=== PATIENT | male | born 1950 | race Caucasian/White ===

== ENCOUNTER 2017-01-04 10:54 | Emergency (ER) | payer BC ==
[~2017-01-04] VITALS: Ht 172.7 cm; Wt 87.5 kg
[2017-01-04 10:55] VITALS: BP 112/65
[2017-01-04] MEDS ORDERED: ALFU10TA2 PO (11:15)
[2017-01-04] MEDS ORDERED: CIPR5SUS PO (11:15)
[2017-01-04] MEDS ORDERED: FINA5TAB2 PO (11:15)
--- NOTE | 2017-01-04 13:59 | REP ---
KUB: Single view. History: History of bladder stones. Findings: Bowel gas pattern is unremarkable. No mass, organomegaly or pathologic calcifications appreciated. Impression: Unremarkable KUB. No urinary tract calculus seen. Signed by Blair Hall MD 01/04/2017 04:41 P
== END 2017-01-04 14:11 | disposition home or self-care (01) ==
LOC: M ED 11:50
DX: R30.0 Dysuria (principal); I10 Essential (primary) hypertension; Z79.899 Other long term (current) drug therapy

== ENCOUNTER → 2017-04-30 | Outpatient (REF) | payer BC ==
[~2017-04-30] MED LIST: ALFU10TA2 PO; CIPR5SUS PO; FINA5TAB2 PO
== END ==
LOC: M SFHCPLAZ 13:22
PROVIDERS: ATTEND Nurse Practitioner Women's Health
DX: N40.1 Benign prostatic hyperplasia with lower urinary tract symptoms (principal)

== ENCOUNTER → 2017-05-12 | Outpatient (REF) | payer BC | LOC: M SMT 12:47 | PROVIDERS: ATTEND Urology | DX: N39.0 Urinary tract infection, site not specified (principal) ==

== ENCOUNTER → 2018-02-15 | Outpatient (REF) | payer OTHER, BC ==
[2018-02-15 13:23] LABS: APPEARANCE, URINE CLEAR (CLEAR); BACTERIA, URINE AUTO NEGATIVE (NEGATIVE); BILIRUBIN, URINE AUTO NEGATIVE (NEGATIVE); BLOOD, URINE BLOOD NEGATIVE (NEGATIVE); COLOR, URINE COLORLESS (YELLOW); GLUCOSE, URINE (UA) AUTO NEGATIVE (NEGATIVE); KETONE, URINE AUTO NEGATIVE (NEGATIVE); LEUKOCYTE ESTERASE, URINE AUTO NEGATIVE (NEGATIVE); NITRITE, URINE AUTO NEGATIVE (NEGATIVE); PROTEIN, URINE AUTO NEGATIVE (NEGATIVE); RBC, URINE AUTO 0 /HPF (0-3); SPECIFIC GRAVITY URINE AUTO 1.002 (1.002-1.035); SQUAMOUS EPITHELIAL CELL UR AU 0 /HPF (0-6); UROBILINOGEN, URINE AUTO 0.2 mg/dL (0.0-2.0); WBC, URINE AUTO 0 /HPF (0-3)
== END ==
LOC: M SMT 13:04
DX: N40.1 Benign prostatic hyperplasia with lower urinary tract symptoms (principal)
CPT/HCPCS: 81001

== ENCOUNTER 2018-03-06 12:15 | Emergency (ER) | payer OTHER ==
[2018-03-06 12:52] LABS: BASO % 0.3 % (0.0-1.0); EOS # 0.1 10^3/uL (0.0-0.50); HEMATOCRIT 40.7 % (42.0-52.0); HEMOGLOBIN 14.3 g/dl (13.5-17.5); IMMATURE GRANULOCYTE % 0.3 % (0-3.0); LYMPH # 1.5 10^3/uL (1.5-4.5); LYMPH % 25.5 % (24.0-44.0); MEAN CORPUSCULAR HEMOGLOBIN 32.1 pg (27.0-33.0); MEAN CORPUSCULAR HGB CONC 35.1 g/dl (32.0-36.5); MEAN CORPUSCULAR VOLUME 91.3 fl (80.0-96.0); MONO # 0.6 10^3/uL (0.0-0.8); MONO % 10.1 % (0.0-5.0); NEUTROPHILS # 3.7 10^3/uL (1.8-7.7); NEUTROPHILS % 62.8 % (36.0-66.0); PLATELET COUNT, AUTOMATED 207 10^3/uL (150-450); RED BLOOD COUNT 4.46 10^6/uL (4.30-6.10); RED CELL DISTRIBUTION WIDTH 12.5 % (11.5-14.5); WHITE BLOOD COUNT 5.8 10^3/uL (4.0-10.0)
[2018-03-06 12:55] LABS: KETONE, URINE AUTO RFX NEGATIVE (NEGATIVE); LEUKOCYTE ESTERASE UR AUTO RFX NEGATIVE (NEGATIVE); MUCUS, URINE RFX SMALL (NEGATIVE); NITRITE, URINE AUTO RFX NEGATIVE (NEGATIVE); RBC, URINE AUTO RFX 1 /HPF (0-3); SQUAM EPITHELIAL CELL UR AURFX 0 /HPF (0-6); WBC, URINE AUTO RFX 0 /HPF (0-3)
[2018-03-06 13:17] LABS: ALBUMIN 3.8 GM/DL (3.2-5.2); ALBUMIN/GLOBULIN RATIO 1.12 (1.00-1.93); ALKALINE PHOSPHATASE 68 U/L (45-117); ALT/SGPT 27 U/L (12-78); ANION GAP 4 MEQ/L (8-16); AST/SGOT 18 U/L (7-37); BILIRUBIN,TOTAL 0.4 MG/DL (0.2-1.0); BLOOD UREA NITROGEN 24 MG/DL (7-18); CALCIUM LEVEL 8.6 MG/DL (8.8-10.2); CARBON DIOXIDE LEVEL 31 MEQ/L (21-32); CHLORIDE LEVEL 108 MEQ/L (98-107); CREATININE FOR GFR 0.98 MG/DL (0.70-1.30); GLOMERULAR FILTRATION RATE > 60.0 (>49); GLUCOSE, FASTING 107 MG/DL (70-100); POTASSIUM SERUM 4.4 MEQ/L (3.5-5.1); SODIUM LEVEL 143 MEQ/L (136-145); TOTAL PROTEIN 7.2 GM/DL (6.4-8.2)
[2018-03-06] MEDS: NS 1,000 ML IV (13:23)
[2018-03-06] MEDS: METOCLOPRAMIDE INJ 10MG/2ML VIAL (J2765) IV (13:23)
== END 2018-03-06 15:23 | disposition home or self-care (01) ==
LOC: M ED 12:15
DX: R10.30 Lower abdominal pain, unspecified (principal); R33.9 Retention of urine, unspecified; N42.9 Disorder of prostate, unspecified; Z87.442 Personal history of urinary calculi; Z87.891 Personal history of nicotine dependence; Z79.899 Other long term (current) drug therapy
CPT/HCPCS: J2765

== ENCOUNTER → 2018-06-21 | Outpatient (CLI) | payer MEDICARE, OTHER | LOC: M ONCR 08:43 | DX: C20 Malignant neoplasm of rectum (principal) | CPT/HCPCS: G0463 ==

== ENCOUNTER 2018-06-29 13:23 | Outpatient (RCR) | payer MEDICARE ==
[2018-06-29 13:53] LABS: HEMOGLOBIN 13.9 g/dl (12.0-18.0); LYMPH # ONCOLOGY 1.8 10^3uL (0.6-4.1); LYMPH % 29.2 % (10.0-58.5); MEAN CORPUSCULAR HGB CONC 33.9 g/dl (31.0-36.0); MEAN CORPUSCULAR VOLUME 97.5 fl (80.0-97.0); MEAN PLATELET VOLUME 8.6 fl (0.0-50.0); MID RANGE CELLS # 0.5 10^3/uL (0-1.8); NEUTROPHILS # 3.8 10^3/uL (2.0-7.8); NEUTROPHILS % 61.8 % (37.0-92.0); PLATELET COUNT, AUTOMATED 237 10^3/uL (140-440); RED BLOOD COUNT 4.21 10^6/uL (4.2-6.3); RED CELL DISTRIBUTION WIDTH 12.9 % (11.5-14.5); WHITE BLOOD COUNT 6.1 10^3/uL (4.1-10.9)
== END 2018-07-01 ==
LOC: M ONCR 13:23
DX: C20 Malignant neoplasm of rectum (principal)
CPT/HCPCS: 77300

== ENCOUNTER → 2018-07-05 | Outpatient (CLI) | payer MEDICARE, OTHER | LOC: M PLARAD 14:58 | DX: C18.9 Malignant neoplasm of colon, unspecified (principal) | CPT/HCPCS: 78815 ==

== ENCOUNTER 2018-07-29 11:21 | Outpatient (RCR) | payer MEDICARE ==
--- NOTE | 2018-07-12 13:15 | RADONC ---
RADIATION ONCOLOGY PROGRESS NOTE DATE: 07/11/2018 CHART NUMBER: [id number] Mr. Ayala underwent his first fraction of radiation today for a dose of 180 cGy to his rectum. It was tolerated without difficulty or discomfort. The patient's review of systems is noncontributory other than for some rectal bleeding. He denies nausea, vomiting, fevers, chills, night sweats, diplopia, headaches, anxiety or depression, anorexia, weight loss, visual disturbances, chest pain, urinary or bowel difficulties, bone pain, or neurological problems. PHYSICAL EXAMINATION: The patient's skin is in good condition with no evidence of radiation change present. There is no moist or dry desquamation. The remainder of his physical exam remains unchanged. Mr. Ayala is tolerating treatments quite well and radiation will continue as scheduled.
--- NOTE | 2018-07-19 08:00 | RADONC ---
RADIATION ONCOLOGY PROGRESS NOTE DATE: 07/18/2018 CHART #: [id number] Mr. Ayala is presently at a dose of 1080 cGy to his rectum and is tolerating treatments quite well at this point with no complaints related to his radiation therapy. He is having no significant urinary or bowel difficulties and no bone pain. REVIEW OF SYSTEMS: The patient's review of systems is noncontributory. Denies nausea, vomiting, fevers, chills, night sweats, diplopia, headaches, anxiety or depression, anorexia, weight loss, visual disturbances, chest pain, urinary or bowel difficulties, bone pain, or neurological problems. PHYSICAL EXAMINATION: The patient's skin is in excellent condition with no evidence of moist or dry desquamation. The remainder of his physical exam remains unchanged. Mr. Ayala is tolerating treatments quite well and radiation will continue as scheduled.
[~2018-07-29 11:21] MED LIST changes: +CAPE1TAB PO; +CAPE1TAB2 PO; +CENT1TAB PO; +CRAN450T4 PO; +FLOM0.4C39 PO; +GLUC1CAP10 PO; +META0.52 PO; +NORCOTAB PO; +OMEP-218 PO; +REGL10TA6 PO; +SAW1CAP2 PO; +VICO7.5T11 PO; +VITA100T59 PO; +ZOFR4TAB14 PO
[2018-08-01] MEDS ORDERED: VICO7.5T11 PO (14:39)
--- NOTE | 2018-08-03 14:28 | RADONC ---
RADIATION ONCOLOGY PROGRESS NOTE DATE: 08/01/2018 CHART NUMBER: [id number] Mr. Ayala is thus far at a dose of 2160 cGy to his rectum and was last treated on 07/28/2018. The patient has been placed on rest until after the holiday on Wednesday. As of last week he had been complaining of perirectal discomfort and skin reaction. We will be seeing him prior to initiation of treatment on Wednesday.
[2018-08-04] MEDS ORDERED: CVS8.6TA5 PO (14:31)
== END 2018-08-01 ==
LOC: M ONCR 11:21
PROVIDERS: ATTEND Radiology Radiation Oncology
DX: C20 Malignant neoplasm of rectum (principal)

== ENCOUNTER 2018-08-31 14:10 | Outpatient (RCR) | payer MEDICARE ==
--- NOTE | 2018-08-16 07:24 | RADONC ---
RADIATION ONCOLOGY PROGRESS NOTE DATE: 08/15/2018 CHART NUMBER: [id number] Mr. Ayala is presently at a dose of 3060 cGy to his rectum and overall is tolerating his treatments fairly well with no significant difficulties related to his radiation therapy other than discomfort upon defecation. The patient's review of systems is positive for painful defecation but is otherwise noncontributory. Denies nausea, vomiting, fevers, chills, night sweats, diplopia, headaches, anxiety or depression, anorexia, weight loss, visual disturbances, chest pain, urinary or bowel difficulties, bone pain, or neurological problems. PHYSICAL EXAMINATION The patient's skin overall is in generally good condition with no evidence of moist or dry desquamation. The remainder of his physical exam remains on. Mr. Ayala is tolerating treatments quite well and radiation will continue as scheduled.
--- NOTE | 2018-08-22 16:24 | RADONC ---
RADIATION ONCOLOGY PROGRESS NOTE DATE: 08/22/2018 CHART NUMBER: [id number] PROGRESS NOTE: Mr. Ayala is thus far at a dose of 3420 cGy to his rectum and was last treated on 08/19/2018. He has requested a treatment break today and tomorrow. Radiation should resume on Wednesday. He had been having some perirectal discomfort and discomfort upon defecation. On physical exam, his skin overall was in generally good condition with some erythema and tanning present but no evidence of moist desquamation. Once again, the patient remains on rest for the next couple of days and radiation should resume on Wednesday.
--- NOTE | 2018-08-29 15:48 | RADONC ---
RADIATION ONCOLOGY PROGRESS NOTE DATE: 08/29/2018 CHART NUMBER: [id number] PROGRESS NOTE: Mr. Ayala is thus far at a dose of 3960 cGy to his rectum and was last treated on 08/25/2017. The patient did not come in for treatment this morning. He reported that he only wanted to be treated three times this week and will be coming in, I believe on Wednesday. The reason for the patient's cancellation is rectal discomfort. Otherwise, he had been tolerating his treatments fairly well. As of last week, the patient's skin was in good condition with no evidence of moist or dry desquamation. The remainder of his physical exam remained unchanged. Once again, the patient is taking break as per his request and radiation is scheduled to continue when he returns.
[~2018-08-31 14:10] MED LIST changes: +CVS8.6TA5 PO
== END 2018-09-01 ==
LOC: M ONCR 14:10
PROVIDERS: ATTEND Radiology Radiation Oncology
DX: C20 Malignant neoplasm of rectum (principal)

== ENCOUNTER 2018-09-05 13:57 | Outpatient (RCR) | payer MEDICARE ==
--- NOTE | 2018-09-06 13:50 | RADONC ---
RADIATION ONCOLOGY TREATMENT SUMMARY DATE OF SERVICE: 09/05/2018 CHART NUMBER: [id number] DIAGNOSIS: Rectal cancer. STAGE: IIA, T3NxMx. ECOG PERFORMANCE STATUS: Zero. TREATMENT SUMMARY: Mr. 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 We treated the patient to his rectum for a total dose of 4500 cGy delivered in 25 fractions of 180 cGy each over 55 elapsed days from 07/11/2018 through 09/05/2018. The patient's rectum was treated on a linear accelerator utilizing a 15 MV photon beam via a three-field technique with left and right lateral and posterior field. Mr. Ayala tolerated his treatments quite well with no significant difficulties related to his radiation therapy. The patient is scheduled to see me again in 1 month for further followup and will continue to be followed by his other physicians, as well. He will be seeing his surgeon for discussion and scheduling of his surgery. cc: Rehana Jeffries MD, FACP Zuhair Reyez MD
== END 2018-09-29 ==
LOC: M ONCR 13:57
PROVIDERS: ATTEND Radiology Radiation Oncology
DX: C20 Malignant neoplasm of rectum (principal)

== ENCOUNTER → 2018-10-05 | Outpatient (CLI) | payer MEDICARE | LOC: M ONCR 14:02 | PROVIDERS: ATTEND Radiology Radiation Oncology | DX: C20 Malignant neoplasm of rectum (principal) ==

== ENCOUNTER 2018-12-25 18:12 | Emergency (ER) | payer MEDICARE ==
[~2018-12-25] VITALS: Ht 175.3 cm; Wt 77.7 kg
[~2018-12-25 18:12] MED LIST changes: -CVS8.6TA5 PO; +HYDR-3715 PO; +LOPE-1 PO; -NORCOTAB PO; +SENN-85 PO
[2018-12-25] MEDS ORDERED: NS 1,000 ML IV ONE (18:45)
[2018-12-25 18:58] LABS: BASO % 0.4 % (0.0-1.0); EOS # 0.1 10^3/uL (0.0-0.50); EOS % 1.1 % (0.0-3.0); HEMATOCRIT 35.5 % (42.0-52.0); HEMOGLOBIN 12.2 g/dl (13.5-17.5); LYMPH # 0.7 10^3/uL (1.5-4.5); LYMPH % 16.2 % (24.0-44.0); MEAN CORPUSCULAR HEMOGLOBIN 32.6 pg (27.0-33.0); MEAN CORPUSCULAR HGB CONC 34.4 g/dl (32.0-36.5); MEAN CORPUSCULAR VOLUME 94.9 fl (80.0-96.0); MONO # 0.6 10^3/uL (0.0-0.8); MONO % 13.3 % (0.0-5.0); NEUTROPHILS # 3.1 10^3/uL (1.8-7.7); NEUTROPHILS % 68.6 % (36.0-66.0); PLATELET COUNT, AUTOMATED 220 10^3/uL (150-450); RED BLOOD COUNT 3.74 10^6/uL (4.30-6.10); WHITE BLOOD COUNT 4.5 10^3/uL (4.0-10.0)
[2018-12-25 21:09] VITALS: BP 97/62
== END 2018-12-25 21:11 | disposition home or self-care (01) ==
LOC: M ED 18:12
DX: R30.0 Dysuria (principal); Z79.899 Other long term (current) drug therapy

== ENCOUNTER → 2019-04-05 | Outpatient (CLI) | payer MEDICARE ==
[~2019-04-05] MED LIST changes: -LOPE-1 PO; +LOPE-39 PO; -VICO7.5T11 PO; +VICO7.5T12 PO
--- NOTE | 2019-04-06 10:44 | RADONC ---
RADIATION ONCOLOGY FOLLOWUP NOTE DATE: 04/05/2019 CHART NUMBER: [id number] DIAGNOSIS Rectal cancer. STAGE: II A, T3, NX, MX. ECOG PERFORMANCE STATUS: 0 FOLLOWUP NOTE: Mr. Ayala is a 69-year-old man whom we treated with neoadjuvant local regional radiotherapy and chemotherapy for his invasive adenocarcinoma of the rectum. He has undergone surgery with Dr. Reyez, who according to the patient told him that he was able to resect all of the known cancer. He continues to do well, denying any nausea, vomiting, diarrhea, dysuria, hematuria or blood per rectum. He does have some increased bowel movements, especially after eating. He also denies anxiety, depression, headaches, anorexia, weight loss, visual disturbances or chest pain. PHYSICAL EXAMINATION: The patient is a well-nourished, well-developed male, in no acute distress. HEENT: Normocephalic. EOMs intact. PERRLA. Fundi benign. Lymphatics: No palpable peripheral lymphadenopathy noted in the cervical, supraclavicular, axillary or inguinal lymph node chains. Lungs are clear to auscultation and percussion. Heart: Regular without murmurs. Abdomen: Without evidence of hepatomegaly, masses, deep abdominal tenderness. Extremities: Without cyanosis, clubbing or edema. IMPRESSION: The patient is doing well and clinically CARTER at this time. He will see Dr. Reyze in June for a scheduled examination and endoscopic evaluation, and Dr. Floresita Salcedo has ordered some followup CT scans. We would like to see him on a p.r.n. basis but have encouraged him to continue his return visits with his referring physicians as per their directions and instructions. cc: MD Zuhair Brooks MD
== END ==
LOC: M ONCR 13:37
PROVIDERS: ATTEND Radiology Radiation Oncology
DX: Z85.048 Personal history of other malignant neoplasm of rectum, rectosigmoid junction, and anus (principal); Z92.3 Personal history of irradiation; Z92.21 Personal history of antineoplastic chemotherapy

== ENCOUNTER → 2019-07-31 | Outpatient (CLI) | payer MEDICARE ==
[~2019-07-31] MED LIST changes: -ALFU10TA2 PO; +ALFU10TA3 PO; +GASTROGRAFIN SOLUTION 30ML (Q9963) As Ordered ONE; +ISOVUE-370 76% 100ML VIAL (Q9967) As Ordered ONE
--- NOTE | 2019-07-31 11:51 | REP ---
Clinical: Rectal carcinoma. Restaging. Technique: Axial contrast enhanced images from the lung bases to the pubic symphysis using oral (per protocol) and 100 ml Isovue 370 intravenous contrast material with coronal and sagittal re-formations. Precontrast and delayed images of the abdomen obtained. Comparison: 06/08/2018. Findings: Lung bases are clear. Visualized heart and pericardium normal. Mild fatty infiltration to the liver is appreciated along with stable cysts. No focal hepatic lesion noted. Spleen, pancreas, gallbladder, bilateral adrenal glands and kidneys are normal. Stable left renal cyst again noted. The enteric system is without obstruction or acute inflammatory process. Evidence for prior surgery at the level of the rectosigmoid noted and no prior baseline examination is available for postsurgical comparison. A small 16 mm nodule along the right side of the rectum at the site of prior surgery is nonspecific in appearance. Pelvis demonstrates normal bladder and age appropriate prostate/seminal vesicles. No ascites. No free air. No intraperitoneal or retroperitoneal adenopathy. No obvious pelvic adenopathy. Osseous structures demonstrate degenerative changes without focal abnormality. Impression: 1. A 16 mm nodule is identified at the site of prior rectal surgery. No postsurgical baseline examination is available for comparison. Lesion cannot exclude recurrence. 2. Hepatic steatosis along with stable hepatic cysts. Stable left renal cyst. Electronically Signed by José Miguel De Santiago MD 07/31/2019 11:43 A
== END ==
LOC: M RAD 09:19
PROVIDERS: ATTEND Internal Medicine Hematology & Oncology
DX: C20 Malignant neoplasm of rectum (principal); K76.0 Fatty (change of) liver, not elsewhere classified; K76.89 Other specified diseases of liver; N28.1 Cyst of kidney, acquired
CPT/HCPCS: 74178; Q9963; Q9967

== ENCOUNTER → 2019-10-26 | Outpatient (CLI) | payer MEDICARE ==
--- NOTE | 2019-10-26 13:32 | REP ---
CT ABDOMEN AND PELVIS WITH ORAL AND IV CONTRAST: TECHNIQUE: Axial contrast enhanced images from the lung bases to the pubic symphysis using 100 mL Isovue 370 intravenous contrast material with multiplanar reformations. COMPARISON: 07/31/2019. Visualized lung bases demonstrate no infiltrate or nodular opacity. The liver demonstrates two adjacent cysts in the superior aspect of the left lobe unchanged since the prior exam. There is a tiny cyst in the right lobe of the liver at the level of the gallbladder. There are five new liver nodules present consistent with metastatic lesions. These are all scattered throughout the right lobe of the liver and the largest is inferiorly located measuring 2.9 cm in diameter. The smallest is superiorly located and measures 1.9 cm in diameter. The spleen is normal in size with no intrinsic abnormality. The adrenal glands are normal. No pancreatic mass is seen. The kidneys demonstrate a cyst in the mid left kidney measuring 1.4 cm in diameter. There is no hydronephrosis. There is no abdomen aortic aneurysm with mild atherosclerotic calcification. No adenopathy, free air or free fluid is seen. In the pelvis there is a small umbilical hernia containing a nonobstructed bowel loop. There is adjacent linear postsurgical scarring the right anterior abdominal wall. A suture line is again seen in the region of the rectum. The diffusely noted suspected soft tissue nodule along the right inner wall of the rectum is not seen on today's exam, although evaluation of the intraluminal saleem is limited due to fecal material in this region. At the level of the previously suspected nodule there is soft tissue mixed with air most consistent with fecal material. There is ill-defined presacral soft tissue density which has diminished since the prior exam. Bladder is not well distended and not optimally evaluated although the bladder wall does appear to be somewhat thickened diffusely. There are degenerative changes of the spine, most significantly at the L5-S1 disc space. IMPRESSION: In the liver there are five new metastatic nodules identified. In the pelvis at the site of the suspected soft tissue nodule in the rectum along the suture line there appears to be fecal material present. No gross intraluminal nodule is seen at this time within the rectum, although evaluation is limited due to the intraluminal fecal material. There is mild ill-defined soft tissue density in the presacral region which has decreased since the prior study. Electronically Signed by Zuhair Elizabeth MD 10/26/2019 04:56 P
== END ==
LOC: M RAD 10:43
PROVIDERS: ATTEND Internal Medicine Hematology & Oncology
DX: R19.00 Intra-abdominal and pelvic swelling, mass and lump, unspecified site (principal)
CPT/HCPCS: 74177; Q9963; Q9967

== ENCOUNTER → 2019-11-09 | Outpatient (CLI) | payer MEDICARE ==
[~2019-11-09] MED LIST changes: -GASTROGRAFIN SOLUTION 30ML (Q9963) As Ordered ONE; +INDO50CA91 PO; -ISOVUE-370 76% 100ML VIAL (Q9967) As Ordered ONE; +PROHANCE 279.3MG/ML 15ML VIAL (A9576) As Ordered ONE; +PROHANCE 279.3MG/ML 5ML VIAL (A9576) As Ordered ONE; +ROSU20TA5 PO; +VALI2TAB PO
--- NOTE | 2019-11-09 10:48 | REP ---
REASON FOR EXAM: History of metastatic rectal carcinoma. Latest prior chest CT for comparison is 06/08/2018. The lack of intravenous contrast decreases the sensitive of the exam. There is no mediastinal or hilar adenopathy. There are no pleural or pericardial effusions. The imaged upper abdomen is unchanged from the abdominal CT of 10/26/2019. Low density hepatic lesions are again noted, but poorly imaged on this noncontrast enhanced exam. There is no change in the osseous structures. Evaluation of the lung caro show no significant changes from the prior chest CT of 06/08/2018. There is mild biapical pleuroparenchymal scarring status quo. No new abnormal nodules, mass, or opacities have developed. IMPRESSION: 1. No evidence of acute intrathoracic disease. 2. Examination limitations and other findings as described above. Electronically Signed by Jose G Farley DO 11/09/2019 11:10 A
--- NOTE | 2019-11-09 12:36 | REP ---
MRI ABDOMEN WITH AND WITHOUT CONTRAST: TECHNIQUE: Multiple sequences obtained in the axial and coronal planes prior to and following the intravenous administration of 17 mL ProHance. Comparison is made with prior CT 10/26/2019. There are five suspicious enhancing nodules in the liver. These are mildly hyperintense on the T2-weighted images. There is ring enhancement on the arterial phase images with mild to moderate delayed central enhancement. In the right lateral dome of the liver, there is a lesion 2.3 cm in diameter. A little more inferiorly in the posterior segment of the right lobe, there is a 2.6 cm lesion medially and a 3.1 cm lesion laterally. More inferiorly in the posterior segment of the right lobe. There is a 3.5 cm lesion medially and a 2.0 cm lesion laterally. Two adjacent cysts in the left lobe of the liver both measure 3.5 cm in maximum diameter. There are three subcentimeter cysts in the medial segment of the left lobe. There are a few subcentimeter gallstones in the gallbladder without evidence of gallbladder wall thickening. There is no biliary dilatation. Spleen is normal in size with no intrinsic abnormality. The adrenal glands are normal. No pancreatic mass or pancreatic duct dilatation is seen. There is a left renal cyst superiorly measuring 1.5 cm in diameter. No adenopathy is seen in the abdomen and there is no free fluid. IMPRESSION: Five metastatic liver nodules identified as discussed in detail above. There are cysts in the left lobe of the liver. There is a cyst in the upper pole of the left kidney. There are small subcentimeter gallstones in the gallbladder. Electronically Signed by Zuhair Elizabeth MD 11/09/2019 01:42 P
== END ==
LOC: M RAD 09:54
PROVIDERS: ATTEND Internal Medicine Hematology & Oncology
DX: C78.5 Secondary malignant neoplasm of large intestine and rectum (principal); R93.2 Abnormal findings on diagnostic imaging of liver and biliary tract; K76.9 Liver disease, unspecified
CPT/HCPCS: 71250; 74183; A9576

== ENCOUNTER → 2019-11-10 | Outpatient (CLI) | payer MEDICARE ==
[~2019-11-10] MED LIST changes: +LIDOCAINE 1% MDV 20ML VIAL As Ordered ONE; +MIDAZOLAM INJ 2 MG/2 ML VIAL (J2250) As Ordered ONE; -PROHANCE 279.3MG/ML 15ML VIAL (A9576) As Ordered ONE; -PROHANCE 279.3MG/ML 5ML VIAL (A9576) As Ordered ONE; +ceFAZolin 1GM VIAL (J0690 PER 500MG) As Ordered ONE; +diphenhydrAMINE 50MG/ML VIAL (J1200) As Ordered ONE; +fentaNYL 100 MCG/2 ML INJECTION (J3010) As Ordered ONE
--- NOTE | 2019-11-10 11:38 | IRHP ---
[facility] IR Pre-Procedure H & P General Date of Service: Nov 10, 2019 Procedure: Same Day Surgery Interval History and Physical I have seen the patient and reviewed last H & P performed within 30 days. There is no significant interval change. History of Present Illness Chief Complaint The patient is a 69-year-old male admitted with a reason for visit of Metastatic Rectal Ca, New Liver Lesions. PRE-PROCEDURE DIAGNOSIS:rectal cancer HEART: normal rate. LUNGS: normal breathing at rest. ASA Classification ASA Classification: III-Severe systemic dis. Mallampati Score: II NPO: Yes Problems with prior sedation: No Obstructive Sleep Apnea: No Plan moderate sedation Allergies Coded Allergies: No Known Allergies (Unverified , 11/08/18) Home Medications Scheduled Ascorbic Acid (Vitamin C), 1 TAB PO DAILY, (Reported) Cranberry Fruit (Cranberry), 1 TAB PO QAM, (Reported) Finasteride (Finasteride), 5 MG PO DAILY, (Reported) Indomethacin (Indomethacin), 50 MG PO DAILY, (Reported) Rosuvastatin Calcium (Rosuvastatin Calcium), 20 MG PO DAILY, (Reported) Tamsulosin HCl (Flomax), 1 CAP PO DAILY, (Reported) Scheduled PRN Diazepam (Valium), 1 TAB PO ONCE PRN for anxiety Discontinued Medications Loperamide HCl (Imodium A-D), 2 MG PO PRN, (Reported) Discontinued Reason: Pt states not taking Multivit-Min/FA/Lycopen/Lutein (Centrum Silver Tablet), 1 TAB PO DAILY, (Reported) Discontinued Reason: Pt states not taking Omeprazole (Omeprazole), 20 MG PO DAILY, (Reported) Discontinued Reason: Pt states not taking VS, I&O, 24H, Fishbone Vital Signs/I&O Vital Signs Date Time Temp Pulse Resp B/P (MAP) Pulse Ox O2 Delivery O2 Flow Rate FiO2 11/10/19 11:30 51 16 100 Nasal Cannula 4 11/10/19 10:27 97.9 MIREYA FRANK MD Nov 10, 2019 11:38
--- NOTE | 2019-11-10 11:42 | REP ---
IR Ultrasound and fluoroscopy-guided port placement. IR Ultrasound of the neck. IR Moderate sedation. Clinical information: Rectal cancer. Physician: Dr. Quinones. Procedure: The patient was advised of the benefits, risks, and alternatives of the procedure and informed consent was obtained. A time-out was performed with verification of the patient's name, MRN, site of procedure and type of procedure to be performed. The patient was positioned in the supine position on the angiographic table. The site was prepped and draped in the usual sterile fashion. Moderate sedation was performed by the physician including the presence of an independent trained observer who assisted and monitored the patient's level of consciousness and physiologic status. Following the administration of Fentanyl and Versed, the physician spent 45 minutes of continuous face to face time with the patient. Ultrasound of the neck reveals a patent and compressible right internal jugular vein. A computer science instructor radiograph reveals no gross abnormality. The neck and anterior chest wall were anesthetized with lidocaine. The right internal jugular vein was accessed using a microintroducer needle under ultrasound guidance, via a lateral approach. An 018 wire was advanced into the superior vena cava, the needle was removed and a microsheath was placed. An Amplatz wire was then passed into the inferior vena cava. An incision at the internal jugular vein access site and anterior chest wall were made using a scalpel. An incision was made at the anterior chest wall. A small pocket was created using a combination of blunt and sharp dissection. A tunneling device was then used to pass the catheter from the pocket to the neck puncture site. An 8-[employer] smart power port was then positioned in the pocket. The catheter was then measured and cut. The introducer sheath was exchanged for a peel-away sheath. The catheter was passed through the peel-away sheath into the internal jugular vein and the peel-away sheath was removed. The port tip was positioned at the cavoatrial junction. The port was then accessed with a Lei needle. The port flushes and aspirates well. The puncture site in the neck was closed. The chest wall incision was then closed with 2-0 Vicryl and 4-0 Monocryl. Glue and Steri-Strips were applied. A sterile dressing was then applied. The patient tolerated the procedure well and was returned to the PRU in stable condition. Estimated blood loss: <5 ml. Complications: None. Conclusion: 1. Successful placement of an 8-[employer] smart power port via the right internal jugular vein. The port is ready for immediate use. 2. Patient to follow up in IR clinic in 2 weeks. Thank you for this referral. Electronically Signed by Marychuy Quinones MD 11/10/2019 11:40 A
[2019-11-10 13:30] VITALS: BP 110/76
== END ==
LOC: M IRPRO 09:28
PROVIDERS: ATTEND Radiology Diagnostic Radiology
DX: C20 Malignant neoplasm of rectum (principal); K76.89 Other specified diseases of liver
CPT/HCPCS: 36561; 99152; 99153; C1769; C1788; C1894; J0690; J1200; J1642; J1644; J2250; J3010

== ENCOUNTER → 2019-11-13 | Outpatient (CLI) | payer MEDICARE ==
[~2019-11-13] MED LIST changes: -MIDAZOLAM INJ 2 MG/2 ML VIAL (J2250) As Ordered ONE; -ceFAZolin 1GM VIAL (J0690 PER 500MG) As Ordered ONE; -diphenhydrAMINE 50MG/ML VIAL (J1200) As Ordered ONE; -fentaNYL 100 MCG/2 ML INJECTION (J3010) As Ordered ONE
[2019-11-13 10:30] VITALS: BP 119/78
--- NOTE | 2019-11-13 19:53 | REP ---
ULTRASOUND-GUIDED LIVER BIOPSY The procedure was performed under the direct supervision of Dr. Elizabeth. The patient has a history of five metastatic liver nodules seen on a previous MRI dated 11/09/2019. The risks and benefits of the procedure were explained to the patient and informed consent was obtained. A lesion in the right lobe of the liver was localized using ultrasound guidance. The skin was prepped and draped in a sterile fashion. 1% lidocaine was used as a local anesthetic. Using ultrasound guidance a 19/20-gauge coaxial needle biopsy system was inserted and advanced into the lesion. Four core biopsy samples were obtained and sent to lab. The patient tolerated the procedure well and there were no immediate complications. After the appropriate amount of monitored convalescence the patient was discharged from the department. Electronically Signed by ISABELLE Smith 11/13/2019 03:42 P Electronically Signed by Zuhair Elizabeth MD 11/13/2019 07:44 P
== END ==
LOC: M IRPRO 07:55
PROVIDERS: ATTEND Internal Medicine Hematology & Oncology
DX: C78.7 Secondary malignant neoplasm of liver and intrahepatic bile duct (principal)

== ENCOUNTER → 2019-11-28 | Outpatient (POV) | payer MEDICARE ==
[~2019-11-28] MED LIST changes: -LIDOCAINE 1% MDV 20ML VIAL As Ordered ONE; +ONDA8TAB10 PO; +PROC10TA4 PO
--- NOTE | 2019-11-29 14:28 | IRPN ---
[facility] IR Progress Note IR Progress Note DATE: Nov 28, 2019 Teleconsult FOLLOW-UP: Status post port placement. Patient states it is doing well. Port has been used without issues. No pain, fever, or discharge at site. ON EXAMINATION: video conference not available on patient side. IMPRESSION: Doing well status post port placement. No further follow up scheduled unless initiated by patient and/or referring provider Thank you for this referral Allergies Coded Allergies: No Known Allergies (Unverified , 11/08/18) MIREYA FRANK MD Nov 29, 2019 14:28
== END ==
LOC: M TMIRPOV 13:04
PROVIDERS: ATTEND Radiology Diagnostic Radiology
DX: Z45.2 Encounter for adjustment and management of vascular access device (principal)

== ENCOUNTER → 2020-02-01 | Outpatient (CLI) | payer MEDICARE ==
[~2020-02-01] MED LIST changes: +ATIV1TAB10 PO; +CELE20TA PO; +DICY1CAP8 PO
--- NOTE | 2020-02-02 06:18 | ECHO ---
DATE OF PROCEDURE: 02/01/2020 AGE: 69 GENDER: Male. HEIGHT: 69 inches WEIGHT: 178 pounds BODY SURFACE AREA: 1.97 sq m LOCATION: Outpatient. REFERRING PHYSICIAN: Sushil Valencia INDICATION: Potentially cardiotoxic chemotherapy. MEASUREMENTS: 2D measurements: RV: 3.9 cm LV: 5.2 cm Septum: 0.9 cm Posterior wall: 0.9 cm Aortic root: 3.6 cm LA: 3.6 cm LVEF: 65% Doppler measurements: AV: 1.03 m/s LVOT: 0.86 m/s LVOT diameter: 2.2 cm MV-E: 64 A: 51 E/A ratio: 1.3 Early mitral deceleration time: 216 ms E prime medial: 7.7 A prime medial: 7 E prime lateral: 7.6 PV: 0.08 m/s Pulmonary artery acceleration time: 123 ms RVSP: 29 mmHg IVC: 1.9 cm COMMENTS: Sinus bradycardia without intraventricular conduction disturbance. M-mode and two-dimensional echocardiography was performed with pulsed, continuous wave, color flow, and tissue Doppler studies. Normal left ventricular size, wall thickness, and wall motion. Normal left atrial size and Doppler assessment of left ventricle (LV) diastolic function and estimated mean left atrial pressure. Normal right heart chamber sizes and motion and estimated pulmonary arterial pressure. Normal inferior vena cava (IVC) size and collapse against an elevated central venous pressure. Normal aortic root dimensions. Normal appearing and functioning aortic valve. Normal appearing mitral valvular apparatus and leaflet excursion with no posterior systolic buckling but trace mitral insufficiency. Normal appearing tricuspid valve with mild insufficiency (physiologic). No apparent intracardiac mass or pericardial effusion.
== END ==
LOC: M CARPUL 12:36
PROVIDERS: ATTEND Internal Medicine Hematology & Oncology
DX: C20 Malignant neoplasm of rectum (principal); C78.7 Secondary malignant neoplasm of liver and intrahepatic bile duct

== ENCOUNTER → 2020-02-08 | Outpatient (CLI) | payer MEDICARE ==
[~2020-02-08] MED LIST changes: +PROHANCE 279.3MG/ML 15ML VIAL As Ordered ONE; +PROHANCE 279.3MG/ML 5ML VIAL As Ordered ONE
--- NOTE | 2020-02-08 11:44 | REP ---
MRI ABDOMEN WITH AND WITHOUT CONTRAST: HISTORY: Liver nodules. COMPARISON: MRI 11/09/2019. TECHNIQUE: Multiple sequences obtained in the axial, coronal, and sagittal planes prior to and following the intravenous administration of 16 mL ProHance. The previously noted five liver lesions, which were suspicious for metastatic nodules have all decreased in size since the prior exam. In the dome laterally, a nodule, which measured 2.3 cm is now 9 mm in diameter. In the posterior segment of the right lobe, a 2.6 cm nodule now measures 1.4 cm and a more laterally 3.1 cm nodule now measures 1.5 cm. More inferiorly in the posterior segment of the right lobe a medial 3.5 cm lesion now measures 1.8 cm and the more lateral 2 cm lesion now measures 1.1 cm. There are left lobe liver cysts, which are stable. Subcentimeter gallstones are again seen in the gallbladder with no gallbladder wall edema or biliary dilatation. Spleen is again unremarkable as are the adrenal glands and pancreas. Left renal cyst is again noted 1.5 cm in diameter. There is no hydronephrosis. There is no evidence of adenopathy or free fluid in the visualized abdomen. IMPRESSION: Five liver nodules that were present on the MRI of 11/09/2019 have decreased in size as discussed in detail above. No new nodules or adenopathy. Electronically Signed by Zuhair Elizabeth MD 02/11/2020 10:17 P
== END ==
LOC: M RAD 02-01 14:33
PROVIDERS: ATTEND Internal Medicine Hematology & Oncology
DX: C20 Malignant neoplasm of rectum (principal)
CPT/HCPCS: 74183; A9576

== ENCOUNTER → 2020-02-20 | Outpatient (REF) | payer MEDICARE ==
[~2020-02-20] MED LIST changes: -PROHANCE 279.3MG/ML 15ML VIAL As Ordered ONE; -PROHANCE 279.3MG/ML 5ML VIAL As Ordered ONE
[2020-02-20 19:01] LABS: APPEARANCE, URINE CLEAR (CLEAR); BACTERIA, URINE AUTO NEGATIVE (NEGATIVE); BILIRUBIN, URINE AUTO NEGATIVE (NEGATIVE); BLOOD, URINE BLOOD NEGATIVE (NEGATIVE); COLOR, URINE STRAW (YELLOW); GLUCOSE, URINE (UA) AUTO NEGATIVE (NEGATIVE); KETONE, URINE AUTO NEGATIVE (NEGATIVE); LEUKOCYTE ESTERASE, URINE AUTO NEGATIVE (NEGATIVE); NITRITE, URINE AUTO NEGATIVE (NEGATIVE); PROTEIN, URINE AUTO NEGATIVE (NEGATIVE); RBC, URINE AUTO 0 /HPF (0-3); SPECIFIC GRAVITY URINE AUTO 1.006 (1.002-1.035); SQUAMOUS EPITHELIAL CELL UR AU 0 /HPF (0-6); UROBILINOGEN, URINE AUTO 0.2 mg/dL (0.0-2.0); WBC, URINE AUTO 0 /HPF (0-3)
== END ==
LOC: M SMT 17:08
PROVIDERS: ATTEND Urology
DX: N40.1 Benign prostatic hyperplasia with lower urinary tract symptoms (principal)

== ENCOUNTER → 2020-05-02 | Outpatient (CLI) | payer MEDICARE ==
--- NOTE | 2020-05-05 17:56 | ECHO ---
DATE OF PROCEDURE: 05/02/2020 Height: 175 cm Weight: 79 kg REFERRING PHYSICIAN: Rehana Jeffries INDICATION: Chemotherapy. MEASUREMENTS: IVS 1.0 LV 5.0 LVPW 0.8 LA 3.6 Aorta 3.7 IVC 1.2 Mitral E wave velocity is 74, A wave 51. E prime septal 9.7 E prime lateral 8.7 LVEF 64% FINDINGS: The study is of good technical quality. The patient is in sinus rhythm. Normal LV size with normal LV systolic function. No segmental wall motion abnormalities are appreciated. Computer generated left ventricular ejection fraction was calculated at 64%, which appears correct based on 2D assessment. Right ventricle is also normal size and systolic function. All four cardiac valves were reasonably well seen and appear normal. Both atria appear normal. No pericardial effusion is noted. Inferior vena cava is normal size and appropriately collapses with inspiration indicative of normal central venous pressure. Aortic root and limited views of aortic arch appear normal. Abdominal aorta was not well seen. Doppler interrogation of the aortic valve reveals no stenosis or insufficiency. There is trivial mitral and tricuspid insufficiency. Calculated pulmonary pressure is within normal limits. Trace pulmonic insufficiency is also seen. Mitral inflow pattern and tissue Doppler imaging of mitral annulus reveals normal diastolic function of left ventricle. Global longitudinal strain is negative 17.9%, which is within normal limits. CONCLUSIONS: 1. Study is of good technical quality. The patient is in sinus rhythm. 2. Normal LV size, left ventricular ejection fraction (LVEF) calculated 64%, normal diastolic function. Global longitudinal strain negative 17.9%. 3. No significant valvular disease. 4. Likely normal central venous pressure and normal pulmonary artery pressure. COMMENTS: Essentially normal echocardiogram. [facility]
== END ==
LOC: M CARPUL 09:23
PROVIDERS: ATTEND Internal Medicine Medical Oncology
DX: Z01.818 Encounter for other preprocedural examination (principal); C20 Malignant neoplasm of rectum

== ENCOUNTER → 2020-05-06 | Outpatient (CLI) | payer MEDICARE ==
[~2020-05-06] MED LIST changes: +GASTROGRAFIN SOLUTION 30ML (Q9963) As Ordered ONE; +ISOVUE-370 76% 100ML VIAL As Ordered ONE
--- NOTE | 2020-05-13 14:38 | REP ---
CT ABDOMEN AND PELVIS WITHOUT AND WITH INTRAVENOUS (IV) CONTRAST: WITH ORAL CONTRAST HISTORY: Follow-up rectal carcinoma. COMPARISON: CT study abdomen and pelvis 10/26/2019 and 07/31/2019. CT CONTRAST DOSE: 100 mL of intravenous Isovue-[address] FINDINGS: Preliminary digital advertising manager radiograph is unremarkable. There are stable hepatic cysts in the left lobe of the liver. The 10/26/2019 study identified five new metastatic nodules. These have regressed. The largest of these has decreased from a 2.8 cm dimension on 10/26/2019 to 1.2 cm dimension today. Another lesion measured 2.9 cm previously and measures 1.3 cm today. No new hepatic metastatic lesion is appreciated. No focal splenic lesion is seen. Normal adrenal glands are observed bilaterally. No abnormality is visible in the pancreas or the gallbladder. There is no evidence of upper abdominal or retroperitoneal periaortic lymphadenopathy. A retroaortic left renal vein is noted incidentally. No renal mass lesion is seen. There is a small cyst in the left kidney. There is mild diffuse thickening of the urinary bladder wall. Low anterior rectal anastomosis is seen. There is no visible rectal or perirectal soft tissue mass. No pelvic adenopathy is appreciated. Postoperative changes are seen in the right anterior abdominal wall. No abdominal wall defect is seen. IMPRESSION: Interval improvement in the hepatic metastatic disease noted 10/27/2019. No new liver lesion or adenopathy is evident. MTDD
--- NOTE | 2020-05-13 14:39 | REP ---
CT CHEST WITH INTRAVENOUS (IV) CONTRAST HISTORY: Follow-up rectal carcinoma. Potentially cardiotoxic medication. CT CONTRAST DOSE: 100 mL of intravenous Isovue-370 is administered. COMPARISON: CT chest study 11/09/2019. Comparison study is also reviewed from 06/08/2018. CT FINDINGS: There is good opacification of the pulmonary arterial tree and the thoracic aorta. There is no evidence of pulmonary embolus, aortic aneurysm, or dissection. No hilar or mediastinal mass or adenopathy is observed. No pleural or pericardial effusion is seen. There are stable cysts in the left lobe of the liver unchanged from the comparison CT study 06/18/2018. There is evidence of regression in the previously identified hepatic metastatic disease since the 10/26/2019 study. No pulmonary nodule or mass lesion is appreciated. No new infiltrate is seen. No bony destructive lesion is seen. IMPRESSION: No evidence of intrathoracic mass or adenopathy. Right-sided Infusaport catheter. Recently identified hepatic metastatic lesions appear improved. MTDD
== END ==
LOC: M RAD 11:30
PROVIDERS: ATTEND Internal Medicine Medical Oncology
DX: K76.89 Other specified diseases of liver (principal); C78.7 Secondary malignant neoplasm of liver and intrahepatic bile duct; C20 Malignant neoplasm of rectum; Z95.9 Presence of cardiac and vascular implant and graft, unspecified
CPT/HCPCS: 71260; 74178; Q9963; Q9967

== ENCOUNTER → 2020-08-05 | Outpatient (CLI) | payer MEDICARE ==
[~2020-08-05] MED LIST changes: -GASTROGRAFIN SOLUTION 30ML (Q9963) As Ordered ONE; -ISOVUE-370 76% 100ML VIAL As Ordered ONE
--- NOTE | 2020-08-06 07:31 | ECHO ---
DATE OF PROCEDURE: 08/05/2020 Age: 70 Gender: Male Height: 175 cm Weight: 79 kg REFERRING PHYSICIAN: Rehana Jeffries M.D. INDICATION: Chemotherapy drugs that may affect the heart. MEASUREMENTS: 2D Measurements: Intraventricular septum 0.80 cm Posterior wall 0.97 cm Left ventricle diastole 5.4 cm Aortic root 3.4 cm Left atrium 3.2 cm Left atrial volume index 27 Inferior vena cava 1.9 cm Doppler Measurements: No aortic stenosis No aortic regurgitation Aortic valve velocity 121 cm/s LVOT velocity 109 cm/s LVOT VTI 25.1 cm Trace mitral regurgitation Mitral E velocity 49.7 cm/s Mitral A velocity 36.0 cm/s Very mild tricuspid regurgitation Estimated right ventricular systolic pressure 31-36 mmHg Estimated right atrial pressure 5-10 mmHg Pulmonary artery acceleration time 157 msec (normal) No pulmonic regurgitation MITRAL ANNULAR TISSUE DOPPLER E prime septal 10.3 cm/s, E prime lateral 12.0 cm/s DESCRIPTION: Rhythm was sinus. Image quality was adequate. This was a 2D, M- mode, color flow Doppler, and pulsed wave Doppler examination including mitral annular tissue Doppler and longitudinal strain analysis. CONCLUSIONS: 1. Normal left ventricle internal dimensions and wall thickness. Normal regional LV wall motion and wall thickening. Normal LV systolic function. Normal peak longitudinal strain. Normal LV diastolic function. Normal right ventricle size and systolic function. 2. Suggestive of mild elevation of estimated right ventricle systolic pressure. 3. No pericardial effusion. 4. Otherwise normal appearing echocardiogram Doppler findings. MTDD
== END ==
LOC: M CARPUL 09:12
PROVIDERS: ATTEND Internal Medicine Medical Oncology
DX: C20 Malignant neoplasm of rectum (principal); Z92.21 Personal history of antineoplastic chemotherapy; Z79.899 Other long term (current) drug therapy

== ENCOUNTER → 2020-08-19 | Outpatient (CLI) | payer MEDICARE ==
[~2020-08-19] MED LIST changes: +GASTROGRAFIN SOLUTION 30ML (Q9963) As Ordered ONE; +ISOVUE-370 76% 100ML VIAL As Ordered ONE
--- NOTE | 2020-08-19 17:51 | REP ---
INDICATION: COLON CA. COMPARISON: 05/06/2020. TECHNIQUE: CT chest performed following the intravenous administration of 100 cc of Isovue 370. Sagittal and coronal reconstruction images are performed. FINDINGS: Lungs: No pulmonary nodule is seen. There is some minor scattered ground-glass opacity in the right upper lobe and left lower lobe which may represent some minor pneumonitis. Mediastinum: No adenopathy. Lindy: No adenopathy. Axilla: No adenopathy. Pleura: No effusion. Heart: Not enlarged. Thoracic aorta: No aneurysm or dissection. Visualized osseous structures: Unremarkable. IMPRESSION: There is some minor scattered ground-glass opacity in the right upper lobe and left lower lobe which may represent some minor pneumonitis. No evidence of nodule or adenopathy. <Electronically signed by Zuhair Elizabeth > 08/19/20 [id number]
--- NOTE | 2020-08-19 18:06 | REP ---
INDICATION: COLON CA COMPARISON: 05/06/2020. TECHNIQUE: CT Scan of the abdomen and pelvis was performed with intravenous administration of 100 cc of Isovue 370, and oral contrast. FINDINGS: Liver: Lobulated cyst in the left lobe of the liver is stable. The metastatic nodule superiorly in the right lobe of the liver continues to decrease in size now measuring 5 mm in diameter. Prior metastatic nodule identified in the posterior right lobe in a subcapsular location continues to decrease in size measuring about 7-8 mm in maximum diameter. More inferiorly in the right lobe of the liver a previously identified metastatic nodule continues to decrease in size measuring approximately 1 cm in diameter. Inferiorly a posterior nodule is decreased in size measuring 8 x 6 mm. The adjacent 7 mm nodule is also slightly smaller than the prior study. No new liver nodule is seen. Gallbladder: Unremarkable. Spleen: Normal. Adrenals: Normal. Pancreas: Normal. Kidneys: Benign left renal cyst measures 1.5 cm. Small and large bowel: Unremarkable. Free fluid: None. Abdominal aorta: No aneurysm or dissection. Adenopathy: None. Appendix: Not inflamed. Osseous structures: There are degenerative changes of the spine without compression deformity. Pelvis: No mass. Mild thickening of the bladder wall diffusely appears stable. There is a small umbilical hernia. IMPRESSION: Continued decreased size of previously identified 5 metastatic nodules in the liver. No new liver lesion. No new adenopathy or other abnormality. <Electronically signed by Zuhair Elizabeth > 08/19/20 [id number]
== END ==
LOC: M RAD 14:03
PROVIDERS: ATTEND Internal Medicine Medical Oncology
DX: C18.9 Malignant neoplasm of colon, unspecified (principal); R91.8 Other nonspecific abnormal finding of lung field; K76.89 Other specified diseases of liver; C78.7 Secondary malignant neoplasm of liver and intrahepatic bile duct; K42.9 Umbilical hernia without obstruction or gangrene
CPT/HCPCS: 71260; 74177; Q9963; Q9967

== ENCOUNTER → 2020-12-09 | Outpatient (CLI) | payer MEDICARE ==
[~2020-12-09] MED LIST changes: +COVI2.5V IM; -GASTROGRAFIN SOLUTION 30ML (Q9963) As Ordered ONE; -ISOVUE-370 76% 100ML VIAL As Ordered ONE; +NEUR300C PO
--- NOTE | 2020-12-09 16:52 | REP ---
INDICATION: RECTAL CANCER. COMPARISON: 01/04/2017. TECHNIQUE: Two AP views of abdomen and pelvis performed. FINDINGS: Multiple metallic clips are seen in the right upper quadrant. A suture line is seen in the lower pelvis in the midline. There is a suture line in the right mid abdomen. A couple mildly dilated small bowel loops in the mid abdomen are nonspecific. There is scattered air throughout the proximal colon, which is not significantly dilated. There are degenerative changes of the spine. IMPRESSION: Nonspecific bowel gas pattern, there are a couple mildly dilated small bowel loops in the mid abdomen. Scattered surgical clips and sutures as above. <Electronically signed by Zuhair Elizabeth > 12/09/20 [id number]
== END ==
LOC: M RAD 14:16
PROVIDERS: ATTEND Internal Medicine Medical Oncology
DX: C20 Malignant neoplasm of rectum (principal)

== ENCOUNTER → 2020-12-24 | Outpatient (CLI) | payer MEDICARE ==
[~2020-12-24] MED LIST changes: +GASTROGRAFIN SOLUTION 30ML (Q9963) As Ordered ONE; +ISOVUE-370 76% 100ML VIAL As Ordered ONE
--- NOTE | 2020-12-24 11:32 | REP ---
INDICATION: RECTAL CA COMPARISON: None TECHNIQUE: Axial contrast enhanced images from the thoracic inlet to the upper abdomen using 100 ml Isovue 370 intravenous contrast material followed by CT of the abdomen and pelvis with coronal and sagittal reformations. This CT examination was performed using the following dose reduction techniques: Automated exposure control, adjustment of mA and/or kv according to the patient's size, and use of iterative reconstruction technique. FINDINGS: Bilateral lung caro are well aerated. There appears to be a small new 9 mm noncalcified nodule along the left side of the mediastinum at the level of the thoracic aortic arch (series 201, image 31) and pathologic lesion cannot be excluded. No consolidation, further suspicious nodule or mass lesion identified. No effusion. No pneumothorax. Tracheobronchial tree is patent. No adenopathy. Further evaluation of the mediastinum demonstrates relatively normal thoracic aorta, pulmonary vasculature, and heart/pericardium. Surrounding osseous structures intact and without acute abnormality. Oelcui-[id number] identified with tip in the SVC/right atrium.. IMPRESSION: 1. Solitary new 9 mm noncalcified nodule along the left side of the mediastinum. Given the patient's history, solitary metastatic focus cannot definitively be excluded. Lesion warrants short-term follow-up. <Electronically signed by José Miguel De Santiago > 12/24/20 [id number]
--- NOTE | 2020-12-24 11:39 | REP ---
INDICATION: RECTAL CA. COMPARISON: 08/19/2020 TECHNIQUE: Axial contrast-enhanced images from the lung bases to the pubic symphysis using oral and 100 cc Isovue 370 intravenous contrast material. Coronal and sagittal reformations obtained along with delayed images of the abdomen. This CT examination was performed using the following dose reduction techniques: Automated exposure control, adjustment of mA and/or kv according to the patient's size, and the use of iterative reconstruction technique. FINDINGS: There appear to be small surgical clips within hypodense lesions in the liver suggesting relatively recent intervention. The larger bilobed cystic lesion in the left lobe is obviously/significantly decreased in size. Spleen, pancreas, bilateral adrenal glands and kidneys are relatively normal/stable. Evidence for prior cholecystectomy noted. Small and large bowel demonstrates postsurgical changes in the right lower quadrant and rectosigmoid level without evidence for obstruction or acute inflammatory process. No obvious enteric mass lesion or metastatic focus is identified. Pelvis demonstrates mild circumferential bladder wall thickening which is nonspecific along with evidence for prior prostate surgery and small fat containing inguinal hernias. No ascites. No focal inflammatory stranding. No obvious significant intraperitoneal or retroperitoneal adenopathy. No free air. Abdominal aorta without aneurysm or dissection. Musculoskeletal structures demonstrate degenerative changes without acute osseous abnormality. IMPRESSION: 1. Surgical clips identified within low-density lesions of the liver suggest relatively recent intervention. Previously noted larger bilobed cystic lesion in the left hepatic lobe appears decreased in size. 2. Postsurgical changes to the colon in the right lower quadrant and rectosigmoid level without adjacent inflammatory stranding, adenopathy or obvious recurrence. 3. No further acute abdominopelvic pathology appreciated. <Electronically signed by José Miguel De Santiago > 12/24/20 [id number]
== END ==
LOC: M RAD 09:32
PROVIDERS: ATTEND Internal Medicine Medical Oncology
DX: C20 Malignant neoplasm of rectum (principal); R91.1 Solitary pulmonary nodule
CPT/HCPCS: 71260; 74177; Q9963; Q9967

== ENCOUNTER → 2021-02-07 | Outpatient (REF) | payer MEDICARE ==
[~2021-02-07] MED LIST changes: +CIPR-249 PO; -GASTROGRAFIN SOLUTION 30ML (Q9963) As Ordered ONE; -ISOVUE-370 76% 100ML VIAL As Ordered ONE
[2021-02-07 17:44] LABS: APPEARANCE, URINE CLEAR (CLEAR); BACTERIA, URINE AUTO NEGATIVE (NEGATIVE); BILIRUBIN, URINE AUTO NEGATIVE (NEGATIVE); BLOOD, URINE BLOOD NEGATIVE (NEGATIVE); COLOR, URINE YELLOW (YELLOW); GLUCOSE, URINE (UA) AUTO NEGATIVE (NEGATIVE); KETONE, URINE AUTO TRACE mg/dL (NEGATIVE); LEUKOCYTE ESTERASE, URINE AUTO NEGATIVE (NEGATIVE); NITRITE, URINE AUTO NEGATIVE (NEGATIVE); PROTEIN, URINE AUTO NEGATIVE (NEGATIVE); RBC, URINE AUTO 0 /HPF (0-3); SPECIFIC GRAVITY URINE AUTO 1.015 (1.002-1.035); SQUAMOUS EPITHELIAL CELL UR AU 0 /HPF (0-6); UROBILINOGEN, URINE AUTO 0.2 mg/dL (0.0-2.0); WBC, URINE AUTO 0 /HPF (0-3)
== END ==
LOC: M SMT 16:55
PROVIDERS: ATTEND Nurse Practitioner Family
DX: N41.9 Inflammatory disease of prostate, unspecified (principal)
CPT/HCPCS: 51798; 81001; 87086; G0463

== ENCOUNTER → 2021-03-26 | Outpatient (CLI) | payer MEDICARE ==
[~2021-03-26] MED LIST changes: +GASTROGRAFIN SOLUTION 30ML (Q9963) As Ordered ONE; +ISOVUE-370 76% 100ML VIAL As Ordered ONE
--- NOTE | 2021-03-26 15:05 | REP ---
INDICATION: RECTAL CA COMPARISON: Multiple the latest 12/24/2020 TECHNIQUE: Standard helical technique after intravenous contrast administration. 100 cc Isovue 370 was administered intravenously. FINDINGS: The 1 cm size nodule seen in the anterior mediastinum on the left is unchanged. The mediastinum and pulmonary rudy are stable without evidence of a new mass or adenopathy. There are no pleural or pericardial effusions. There is no significant change in appearance of the imaged upper abdomen or imaged osseous structures. There is an [id number] catheter which is unchanged. Evaluation of the lung caro shows biapical pleuroparenchymal scarring status quo. There are no new abnormal nodules, masses, or opacities. IMPRESSION: Stable CT findings. There is no evidence of acute disease. <Electronically signed by Jose G Farley > 03/26/21 [id number]
--- NOTE | 2021-03-26 15:09 | REP ---
INDICATION: RECTAL CA. COMPARISON: Multiple the latest 12/25/2019 TECHNIQUE: Standard helical technique after the intravenous administration of 100 cc Isovue 370 and oral bowel preparatory contrast administration. FINDINGS: The liver is unchanged. No new enhancing lesions have developed. There is an unchanged cystic lesion in the left lobe and there are unchanged postprocedural sites. There are no new enhancing abnormalities. There is no intrahepatic ductal dilatation. The spleen, pancreas, adrenal glands, and kidneys are unchanged. There is a Bosniak class 1 simple left renal cyst status quo. The abdominal aorta and para-aortic regions are unchanged. No adenopathy has developed. There is no significant change in appearance of the bowel loops or the mesenteries. Postoperative changes are again seen involving the rectosigmoid region status quo. There is no evidence of a mass or adenopathy. There is no free fluid or free air. The imaged osseous structures are stable and intact. IMPRESSION: There is no evidence of acute disease or significant change compared to the prior exam with findings as described above. <Electronically signed by Jose G Farley > 03/26/21 [id number]
== END ==
LOC: M RAD 12:22
PROVIDERS: ATTEND Internal Medicine Medical Oncology
DX: C20 Malignant neoplasm of rectum (principal)
CPT/HCPCS: 71260; 74177; Q9963; Q9967

== ENCOUNTER → 2021-06-24 | Outpatient (CLI) | payer MEDICARE ==
--- NOTE | 2021-06-24 16:02 | REP ---
INDICATION: RECTAL CA. COMPARISON: Multiple the latest 03/26/2021 TECHNIQUE: Standard helical technique after the intravenous administration of 100 cc Isovue 370. Oral bowel preparatory contrast was also administered prior to the exam. FINDINGS: The liver is unchanged. There are no new enhancing lesions. The spleen, pancreas, adrenal glands, and kidneys are stable. There are bilateral extrarenal pelves status quo and there is a stable left renal cyst. The abdominal aorta and para-aortic regions are within normal limits and unchanged. There is no adenopathy. There is no significant change in appearance of the bowel loops or the mesenteries. No mass or adenopathy has developed. Postop changes are again seen in the rectosigmoid region status quo. Bone window technique throughout the examination shows no significant change in appearance of the osseous structures. IMPRESSION: Stable CT examination. There is no evidence of acute or recurrent disease. Findings as described above. <Electronically signed by Jose G Farley > 06/24/21 [id number]
--- NOTE | 2021-06-24 16:22 | REP ---
INDICATION: RECTAL CA COMPARISON: None TECHNIQUE: Axial contrast enhanced images from the thoracic inlet to the upper abdomen with coronal and sagittal reformations using 100 ml Isovue 370 intravenous contrast material. This CT examination was performed using the following dose reduction techniques: Automated exposure control, adjustment of mA and/or kv according to the patient's size, and use of iterative reconstruction technique. FINDINGS: The bilateral lung caro are well aerated and essentially clear. Mild stable apical scarring noted. No consolidation, suspicious nodule or mass lesion is appreciated. No effusion. No pneumothorax. Tracheobronchial tree is patent. No evidence for axillary, hilar, or mediastinal adenopathy. Further evaluation of the mediastinum demonstrates normal thoracic aorta, pulmonary vasculature and heart/pericardium. Thyroid gland is normal. [id number]-Geyu identified with tip in the right atrium. Surrounding musculoskeletal structures without acute osseous abnormality. Limited upper abdomen demonstrates normal bilateral adrenal glands along with prior cholecystectomy and hepatic surgical changes. IMPRESSION: Normal contrast-enhanced chest CT. No acute mediastinal or pleuroparenchymal process. <Electronically signed by José Miguel De Santiago > 06/24/21 [id number]
== END ==
LOC: M RAD 13:06
PROVIDERS: ATTEND Internal Medicine Medical Oncology
DX: C20 Malignant neoplasm of rectum (principal); N28.1 Cyst of kidney, acquired; Z90.49 Acquired absence of other specified parts of digestive tract
CPT/HCPCS: 71260; 74177; Q9963; Q9967

== ENCOUNTER 2021-08-21 07:44 | Day surgery (SDC) | payer MEDICARE ==
[~2021-08-21] VITALS: Ht 175.3 cm; Wt 84.8 kg
[~2021-08-21 07:44] MED LIST changes: -GASTROGRAFIN SOLUTION 30ML (Q9963) As Ordered ONE; -ISOVUE-370 76% 100ML VIAL As Ordered ONE; +MULT-90 PO; +NS 1,000 ML IV ONE; +OMEP-173 PO; -OMEP-218 PO; +ONDA-84 PO; -ONDA8TAB10 PO; -PROC10TA4 PO; +PROC10TA5 PO; +VITA500C24 PO
[2021-08-21] MEDS ORDERED: LIDOCAINE 2% MDV 20ML VIAL As Ordered ONE (08:25)
[2021-08-21] MEDS ORDERED: propofoL 200 MG/20 ML VIAL As Ordered ONE (08:25)
[2021-08-21 10:30] VITALS: BP 98/64
[2021-08-21] MEDS ORDERED: SODIUM CHLORIDE 0.9% INJ 10 ML SYR IV PRN (10:50)
[2021-08-22] MEDS ORDERED: SODIUM CHLORIDE 0.9% INJ 10 ML SYR IV SCH (09:00)
== END 2021-08-21 10:39 | disposition home or self-care (01) ==
LOC: M OPP 07:44
PROVIDERS: ATTEND Internal Medicine Gastroenterology
DX: K63.5 Polyp of colon (principal); K64.8 Other hemorrhoids; Z98.0 Intestinal bypass and anastomosis status; Z85.048 Personal history of other malignant neoplasm of rectum, rectosigmoid junction, and anus; Z79.899 Other long term (current) drug therapy; Z92.21 Personal history of antineoplastic chemotherapy; Z92.3 Personal history of irradiation
CPT/HCPCS: 45385; 88305; J1642

== ENCOUNTER → 2021-12-19 | Outpatient (CLI) | payer MEDICARE ==
[~2021-12-19] MED LIST changes: +GASTROGRAFIN SOLUTION 30ML (Q9963) As Ordered ONE; +ISOVUE-370 76% 100ML VIAL As Ordered ONE; -NS 1,000 ML IV ONE
== END ==
LOC: M RAD 09:41
PROVIDERS: ATTEND Internal Medicine Medical Oncology
DX: C20 Malignant neoplasm of rectum (principal)
CPT/HCPCS: 71260; 74177; Q9963; Q9967

== ENCOUNTER → 2022-06-11 | Outpatient (CLI) | payer MEDICARE ==
[~2022-06-11] MED LIST changes: +ASPI1CHW3 PO; +ATOR40TA75; +CIPR500T39; -GASTROGRAFIN SOLUTION 30ML (Q9963) As Ordered ONE; +GASTROGRAFIN SOLUTION 30ML As Ordered ONE
== END ==
LOC: M RAD 09:24
PROVIDERS: ATTEND Internal Medicine Medical Oncology
DX: C20 Malignant neoplasm of rectum (principal); C78.7 Secondary malignant neoplasm of liver and intrahepatic bile duct
CPT/HCPCS: 71260; 74177; Q9963; Q9967

== ENCOUNTER → 2022-12-24 | Outpatient (CLI) | payer MEDICARE ==
[~2022-12-24] MED LIST changes: +ASPI-655 PO; -ASPI1CHW3 PO
== END ==
LOC: M RAD 10:48
PROVIDERS: ATTEND Internal Medicine Medical Oncology
DX: C20 Malignant neoplasm of rectum (principal)
CPT/HCPCS: 71260; 74177; Q9963; Q9967

== ENCOUNTER → 2023-06-02 | Outpatient (CLI) | payer MEDICARE ==
[~2023-06-02] MED LIST changes: -ROSU20TA5 PO; +ROSU20TA61 PO
== END ==
LOC: M RAD 09:26
PROVIDERS: ATTEND Internal Medicine Medical Oncology
DX: C20 Malignant neoplasm of rectum (principal)
CPT/HCPCS: 71260; 74177; Q9963; Q9967

== ENCOUNTER → 2023-08-27 | Outpatient (REF) | payer MEDICARE ==
[~2023-08-27] MED LIST changes: -GASTROGRAFIN SOLUTION 30ML As Ordered ONE; -ISOVUE-370 76% 100ML VIAL As Ordered ONE
[2023-08-27 18:48] LABS: APPEARANCE, URINE CLEAR (CLEAR); BACTERIA, URINE AUTO NEGATIVE (NEGATIVE); BILIRUBIN, URINE AUTO NEGATIVE (NEGATIVE); BLOOD, URINE BLOOD NEGATIVE (NEGATIVE); COLOR, URINE YELLOW (YELLOW); GLUCOSE, URINE (UA) AUTO NEGATIVE (NEGATIVE); KETONE, URINE AUTO NEGATIVE (NEGATIVE); LEUKOCYTE ESTERASE, URINE AUTO NEGATIVE (NEGATIVE); NITRITE, URINE AUTO NEGATIVE (NEGATIVE); PROTEIN, URINE AUTO NEGATIVE (NEGATIVE); RBC, URINE AUTO 0 /HPF (0-3); SPECIFIC GRAVITY URINE AUTO 1.016 (1.002-1.035); SQUAMOUS EPITHELIAL CELL UR AU 0 /HPF (0-6); UROBILINOGEN, URINE AUTO 0.2 mg/dL (0.0-2.0); WBC, URINE AUTO 0 /HPF (0-3)
== END ==
LOC: M LABSMT 13:21
PROVIDERS: ATTEND Urology
DX: N40.0 Benign prostatic hyperplasia without lower urinary tract symptoms (principal)

== ENCOUNTER → 2023-12-03 | Outpatient (REF) | payer MEDICARE ==
[~2023-12-03] MED LIST changes: -ATOR40TA75; +ATOR40TA75 PO; -CIPR500T39; +CIPR500T39 PO
[2023-12-03 13:17] LABS: BASO % 0.3 % (0.0-1.0); EOS % 0.5 % (0.0-3.0); HEMATOCRIT 35.1 % (42.0-52.0); HEMOGLOBIN 12.2 g/dl (13.5-17.5); LYMPH # 0.8 10^3/uL (1.5-5.0); LYMPH % 13.8 % (24.0-44.0); MEAN CORPUSCULAR HEMOGLOBIN 32.7 pg (27.0-33.0); MEAN CORPUSCULAR HGB CONC 34.8 g/dl (32.0-36.5); MEAN CORPUSCULAR VOLUME 94.1 fl (80.0-96.0); MONO # 0.6 10^3/uL (0.0-0.8); MONO % 10.6 % (2.0-8.0); NEUTROPHILS # 4.5 10^3/uL (1.5-8.5); NEUTROPHILS % 74.5 % (36.0-66.0); PLATELET COUNT, AUTOMATED 243 10^3/uL (150-450); RED BLOOD COUNT 3.73 10^6/uL (4.30-6.10)
[2023-12-03 13:38] LABS: HEMOGLOBIN A1c 5.8 % (4.0-6.0)
[2023-12-03 13:48] LABS: ALBUMIN 3.2 G/DL (3.2-5.2); ALKALINE PHOSPHATASE 79 U/L (46-116); ALT/SGPT 36 U/L (7.0-40); AST/SGOT 25 U/L (<34); BILIRUBIN,TOTAL 0.5 MG/DL (0.3-1.2); BLOOD UREA NITROGEN 20 MG/DL (9-23); CALCIUM LEVEL 8.7 MG/DL (8.3-10.6); CARBON DIOXIDE LEVEL 27 MMOL/L (20-31); CHLORIDE LEVEL 103 MMOL/L (98-107); CHOLESTEROL LEVEL 121 MG/DL (<200); CHOLESTEROL RISK RATIO 2.45 (<5); CREATININE FOR GFR 0.82 MG/DL (0.70-1.30); GLOMERULAR FILTRATION RATE > 60.0 (>42); GLUCOSE, FASTING 104 MG/DL (74-106); HDL CHOLESTEROL 49.2 MG/DL (>40); LDL CHOLESTEROL 59.8 MG/DL (<100); NON-HDL-C 71.8 MG/DL; POTASSIUM SERUM 4.4 MMOL/L (3.5-5.1); SODIUM LEVEL 137 MMOL/L (136-145); TOTAL PROTEIN 6.5 G/DL (5.7-8.2); TRIGLYCERIDES LEVEL 60 MG/DL (<150)
== END ==
LOC: M LAB REF 12:55
PROVIDERS: ATTEND Nurse Practitioner Family
DX: D72.819 Decreased white blood cell count, unspecified (principal); E78.00 Pure hypercholesterolemia, unspecified; R73.03 Prediabetes

== ENCOUNTER → 2024-04-18 | Outpatient (CLI) | payer MEDICARE ==
[~2024-04-18] MED LIST changes: +ALFU10TA23 PO; -ALFU10TA3 PO; +GASTROGRAFIN SOLUTION 30ML As Ordered ONE; +ISOVUE-370 76% 100ML VIAL As Ordered ONE
== END ==
LOC: M RAD 11:26
PROVIDERS: ATTEND Internal Medicine Medical Oncology
DX: C20 Malignant neoplasm of rectum (principal); R91.1 Solitary pulmonary nodule
CPT/HCPCS: 71260; 74177; Q9963; Q9967

== ENCOUNTER → 2024-06-13 | Outpatient (CLI) | payer MEDICARE ==
[~2024-06-13] MED LIST changes: -GASTROGRAFIN SOLUTION 30ML As Ordered ONE; -ISOVUE-370 76% 100ML VIAL As Ordered ONE; -ROSU20TA61 PO; +ROSU20TA86 PO
== END ==
LOC: M PLARAD 09:07
PROVIDERS: ATTEND Internal Medicine Medical Oncology
DX: C20 Malignant neoplasm of rectum (principal)
CPT/HCPCS: 78815; A9552

== ENCOUNTER → 2024-10-05 | Outpatient (CLI) | payer MEDICARE ==
[~2024-10-05] MED LIST changes: +ISOVUE-370 76% 100ML VIAL ONE
== END ==
LOC: M PLAIMG 13:49
PROVIDERS: ATTEND Physician Assistant
DX: R91.1 Solitary pulmonary nodule (principal); J98.11 Atelectasis; J43.9 Emphysema, unspecified; Z95.828 Presence of other vascular implants and grafts; K76.0 Fatty (change of) liver, not elsewhere classified; N62 Hypertrophy of breast
CPT/HCPCS: 71260; Q9967

== ENCOUNTER → 2025-04-05 | Outpatient (CLI) | payer MEDICARE, OTHER ==
[~2025-04-05] MED LIST changes: -ASPI-655 PO; +ASPI-737 PO; -FLOM0.4C39 PO; +ISOVUE-370 76% 100 ML VIAL As Ordered ONE; -ISOVUE-370 76% 100ML VIAL ONE; +TAMS-18 PO
== END ==
LOC: M RAD 11:01
PROVIDERS: ATTEND Internal Medicine Medical Oncology
DX: C20 Malignant neoplasm of rectum (principal)
CPT/HCPCS: 71260; 74177; Q9967